=== PATIENT | male | born 1965 | race Caucasian/White ===

== ENCOUNTER → 2020-05-04 | Outpatient (CLI) | payer OTHER ==
[~2020-05-04] MED LIST: ASPIRIN 325MG325 MG PO; CARVEDILOL25 MG PO; LASIX 40 MG TAB40 MG PO; LIPITOR20 MG PO; NORVASC10 MG PO; ZEGERID 20 MG1 EACH PO; ZESTRIL10 MG PO
[2020-05-04 16:47] LABS: HEMOGLOBIN 15.4 gm/dl (14.0-17.5); RED BLOOD COUNT 5.04 M/UL (4.20-5.50)
[2020-05-04 17:15] LABS: BUN/CREATININE RATIO 14 (0-10)
== END ==
LOC: LAB 16:12
PROVIDERS: Nurse Practitioner Family
DX: Z12.5 Encounter for screening for malignant neoplasm of prostate (principal); J18.9 Pneumonia, unspecified organism; E78.5 Hyperlipidemia, unspecified; I10 Essential (primary) hypertension
CPT/HCPCS: 71046; 80053; 80061; 84153; 85025